=== PATIENT | male | born 1995 | race African-American/Black ===

== ENCOUNTER 2022-12-28 07:22 | Emergency (ER) | payer MEDICAID, SELFPAY ==
[2022-12-28 07:24] VITALS: PULSE 141; RESP 18; TEMP 36.2; O2SAT 99; BMI 27.8
[2022-12-28] MEDS: Etomidate 20 MG/10 ML Vial IV (07:24)
[2022-12-28] MEDS: Rocuronium Bromide 50 MG/5 ML Vial IV (07:25)
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
--- NOTE | 2022-12-28 07:32 | NURSING ---
NO OLD EKGS
[2022-12-28 07:35] VITALS: BP 119/83
--- NOTE | 2022-12-28 07:40 | RAD_ITS ---
We are attempting to reach an attending provider to discuss findings. An addendum with communication details will be sent when the communication is complete. EXAM: XR CHEST, 1 VIEW CLINICAL INDICATION: Intubation TECHNIQUE: Frontal view of the chest. COMPARISON: No relevant prior studies available. FINDINGS: LUNGS AND PLEURAL SPACES: Prominent right subpulmonic pneumothorax and right lateral pneumothorax. This is probably 50% pneumothorax. No effusion. No suspicious infiltrates. HEART: Unremarkable. Cardiac silhouette not enlarged. MEDIASTINUM: Central airways and mediastinal contour are unremarkable. BONES/JOINTS: Unremarkable. SOFT TISSUES: Soft tissue air emphysema in the left axilla. TUBES, LINES AND DEVICES: ET tube tip is 4 cm above the prasad. OG tube tip and sidehole are inside the left gastric cardiac facing the left hemidiaphragm. RAD/Chest 1 View (Portable) IMPRESSION: 1. 50% right-sided pneumothorax, greater in the subpulmonic space. 2. Satisfactory placement of ET tube and OG tube. Electronically Signed: Tae Lott MD at 8:14 EDT ,
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
[2022-12-28] MEDS: 0.9% Normal Saline 1,000 ML 999 ML IV (07:42)
[2022-12-28] MEDS: Cefazolin 1 GM/50 ML BAG IV (07:43)
[2022-12-28] MEDS: Diphth,Pertuss(Acell),Tet Vac 0.5 ML Vial IM (07:43)
[2022-12-28 07:45] LABS: Absolute Lymphocyte Count 5.36 X10^3/uL (0.83-4.51); Basophil# 0.05 X10^3/uL; Basophil% 0.5 % (0-1); Eosinophil# 0.44 X10^3/uL; Eosinophils% 4.2 % (0-5); Hematocrit 39.1 % (40-54); Hemoglobin 12.4 g/dL (13.0-16.5); Lymphocyte # 5.36 X10^3/ul (0.83-4.51); Lymphocyte % 51.5 % (19-41); Mean Corp Hgb Conc 31.7 g/dL (32-36); Mean Corpuscular Hgb 30.5 pg (27.0-32.0); Mean Corpuscular Volume 96.1 fL (80-94); Mean Platelet Vol. 11.7 fl (6.2-12.0); Monocyte# 0.51 X10^3/uL; Monocyte% 4.9 % (0-10); NRBC Flagged by Analyzer 0 % (0-5); Neutrophil % 38.4 % (47-70); POSITIVE DIFFERENTIAL YES; Platelet Count 236 K/mm3 (150-450); RBC Distribution Width CV 11.9 % (11.6-14.6); RBC Distribution Width SD 41.5 fl (35.1-43.9); Red Blood Count 4.07 M/mm3 (4.6-6.2); White Blood Count 10.4 K/mm3 (4.4-11.0)
[2022-12-28 07:46] LABS: Differential Indicated SCAN CRITERIA MET
[2022-12-28 07:50] LABS: Base Excess -6 mmol/L (-2 to +2); Bicarbonate 20.4 mmol/L (22-26); Blood Gas Specimen Type ART; FI02 100; O2 Delivery Device Bagging; PO2 498 mmHG (75-100); SITE R Fem; SO2 100 % (95-99); Total Carbon Dioxide 22 mmol/L; pCO2 39.7 mmHg (35-45); pH 7.32 (7.35-7.45)
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
--- NOTE | 2022-12-28 07:56 | NURSING ---
PER LAB, PT,PTT HEMOIZED
[2022-12-28 08:01] LABS: AST(SGOT) 16 U/L (15-37); Alanine Aminotransfer ALT/SGPT 16 U/L (16-61); Albumin, Serum 3.3 g/dL (3.2-5.0); Alkaline Phosphatase 63 U/L (45-117); Anion Gap 19 (5-15); BUN 12 mg/dL (7-18); BUN/Creat Ratio 8.1 RATIO (10-20); Bilirubin, Direct 0.16 mg/dL (0.00-0.30); Calcium,Total 8.5 mg/dL (8.5-10.1); Chloride 103 mmol/L (98-107); Creatinine, Serum 1.48 mg/dL (0.70-1.30); EST Glomerular Filtration Rate 61 mL/min (>60); Est Glom Filt Rate - Afr Amer 74 mL/min (>60); Estimated Creatinine Clearance 83.02 ml/min; Globulin 2.7 g/dL (2.2-4.2); Glucose 239 mg/dL (74-106); Sodium Level 143 mmol/L (136-145)
--- NOTE | 2022-12-28 08:01 | NURSING ---
ETA IS [address] MARYAM MULLER ER NURSE TO NURSE [phone]
[2022-12-28] MEDS: Propofol 10MG/Ml 1,000 MG/100 ML Bottle 5.6 MG CONT INF (08:16)
[2022-12-28 08:20] VITALS: BP 118/77; PULSE 100; RESP 18; O2SAT 95
[2022-12-28] MEDS: Propofol 200 MG/20 ML Vial 60 MG IV BOLUS (08:20)
[2022-12-28 08:29] VITALS: BP 111/65; PULSE 100; RESP 18; O2SAT 98
--- NOTE | 2022-12-28 08:38 | ED.RN ---
SECOND UNIT OF TRAUMA BLOOD GIVEN TO TRANSPORT TEAM.
[2022-12-28 08:40] LABS: CPK Total, Creatine Kinase 206 U/L (39-308)
== END 2022-12-28 08:40 | disposition short-term general hospital (02) ==
PROVIDERS: Emergency Provider Emergency Medicine; Visit Provider Emergency Medicine
DX: S27.0XXA Traumatic pneumothorax, initial encounter (principal); S68.121A Partial traumatic metacarpophalangeal amputation of left index finger, initial encounter; S01.512A Laceration without foreign body of oral cavity, initial encounter; S11.81XA Laceration without foreign body of other specified part of neck, initial encounter; S81.811A Laceration without foreign body, right lower leg, initial encounter; S41.111A Laceration without foreign body of right upper arm, initial encounter; X99.9XXA Assault by unspecified sharp object, initial encounter; Y92.89 Other specified places as the place of occurrence of the external cause; E87.20 Acidosis, unspecified; E87.6 Hypokalemia; R73.9 Hyperglycemia, unspecified; R00.0 Tachycardia, unspecified
CPT/HCPCS: 32551; G0463; 31500; 36430; 36600; 51702; 70450; 70498; 71045; 71260; 74177; 80048; 80076; 82550; 82803; 85025; 86644; 86850; 86900; 86901; 86920; 86922; 90715; 93005; 96365; 96367; 99252; 99285; J7030; J7040; P9016; Q9967; A4216